=== PATIENT | female | born 1970 | race Caucasian/White ===

== ENCOUNTER 2018-12-24 19:32 | Emergency (ER) | payer MEDICARE, MEDICAID ==
[~2018-12-24] VITALS: Ht 147.3 cm; Wt 72.7 kg
[2018-12-24 19:37] VITALS: BP 121/72; PULSE 100; TEMP 98.1
[2018-12-24] MEDS ORDERED: CYMBALTA 30MG30 MG PO (22:45)
[2018-12-24] MEDS ORDERED: NORCO 325 MG-51 TAB PO (23:44)
== END 2018-12-24 23:55 | disposition home or self-care (01) ==
LOC: COL.ER 19:32
DX: M79.7 Fibromyalgia (principal); M25.561 Pain in right knee; M25.562 Pain in left knee; W18.30XA Fall on same level, unspecified, initial encounter; Y92.410 Unspecified street and highway as the place of occurrence of the external cause
CPT/HCPCS: J1885

== ENCOUNTER → 2019-02-14 | Outpatient (CLI) | payer MEDICARE, MEDICAID ==
[~2019-02-14] MED LIST: CYMBALTA 30MG30 MG PO; NORCO 325 MG-51 TAB PO
== END ==
LOC: MHCPAIN 10:22
DX: G89.29 Other chronic pain (principal); M47.817 Spondylosis without myelopathy or radiculopathy, lumbosacral region; M54.16 Radiculopathy, lumbar region; M53.3 Sacrococcygeal disorders, not elsewhere classified; M96.1 Postlaminectomy syndrome, not elsewhere classified
CPT/HCPCS: G0463

== ENCOUNTER → 2019-02-17 | Outpatient (CLI) | payer MEDICARE, MEDICAID | LOC: MHCPAIN 13:41 | DX: M47.817 Spondylosis without myelopathy or radiculopathy, lumbosacral region (principal); M54.16 Radiculopathy, lumbar region; M53.3 Sacrococcygeal disorders, not elsewhere classified | CPT/HCPCS: G0260; J1040; Q9967 ==

== ENCOUNTER → 2019-06-27 | Outpatient (CLI) | payer MEDICARE, MEDICAID | LOC: MHCPAIN 09:03 | DX: G89.29 Other chronic pain (principal); M47.817 Spondylosis without myelopathy or radiculopathy, lumbosacral region; M54.16 Radiculopathy, lumbar region; M53.3 Sacrococcygeal disorders, not elsewhere classified; M96.1 Postlaminectomy syndrome, not elsewhere classified | CPT/HCPCS: G0463 ==

== ENCOUNTER 2019-08-19 15:00 | Outpatient (RCR) | payer MEDICARE, MEDICAID | END 2019-10-07 10:50 | disposition home or self-care (01) | LOC: WSC 15:00 | DX: M53.3 Sacrococcygeal disorders, not elsewhere classified (principal); M96.1 Postlaminectomy syndrome, not elsewhere classified; M47.27 Other spondylosis with radiculopathy, lumbosacral region; M79.7 Fibromyalgia ==

== ENCOUNTER → 2019-09-26 | Outpatient (CLI) | payer MEDICARE, MEDICAID | LOC: MHCPAIN 09:26 | DX: M47.817 Spondylosis without myelopathy or radiculopathy, lumbosacral region (principal); M53.3 Sacrococcygeal disorders, not elsewhere classified | CPT/HCPCS: G0463 ==

== ENCOUNTER 2022-04-22 07:59 | Day surgery (SDC) | payer MEDICARE, MEDICAID ==
[~2022-04-22] VITALS: Ht 147.3 cm; Wt 62.6 kg
[2022-04-22 09:00] VITALS: BP 116/75; PULSE 81; TEMP 98
[2022-04-22] MEDS ORDERED: CATAPRES 0.1MG0.1 MG PO (09:22)
[2022-04-22] MEDS ORDERED: CYMBALTA 60MG60 MG PO (09:23)
[2022-04-22] MEDS ORDERED: ELAVIL100 MG PO (09:24)
[2022-04-22] MEDS ORDERED: MOBIC15 MG PO (09:24)
[2022-04-22] MEDS ORDERED: SYNTHROID0.05 MG/TA PO (09:25)
[2022-04-22] MEDS ORDERED: ZANAFLEX 4MG TAB4 MG PO (09:25)
[2022-04-22] MEDS ORDERED: TOPAMAX 25MG25 M1 PO (09:26)
[2022-04-22] MEDS ORDERED: PROTONIX20 MG PO (09:26)
[2022-04-22] MEDS ORDERED: SINGULAIR 110 MG/TAB PO (09:27)
[2022-04-22] MEDS ORDERED: ZOCOR 10MG10 MG PO (09:27)
[2022-04-22] MEDS ORDERED: 00186-0370-20 IH (09:28)
[2022-04-22] MEDS ORDERED: VALIUM 10MG10 MG/TAB PO (09:29)
[2022-04-22] MEDS ORDERED: PROAIR HFA0.09 MG/AC IH (09:30)
[2022-04-22] MEDS ORDERED: TRIAMCINOLONE A15 GM TP (09:30)
[2022-04-22] MEDS ORDERED: ALBUTEROL0.83 MG/ML IH (09:31)
[2022-04-22] MEDS ORDERED: VITAMIN D31000 IU PO (09:31)
[2022-04-22] MEDS ORDERED: FOLIC ACID0.4 MG PO (09:32)
[2022-04-22] MEDS ORDERED: B-12 500 MCG PO (09:32)
[2022-04-22] MEDS ORDERED: NATURE'S BLE1000 MCG PO (09:33)
[2022-04-22] MEDS ORDERED: OMEGA-3 FISH1000 MG PO (09:33)
[2022-04-22] MEDS ORDERED: MULTI VITAMINS1 TAB PO (09:33)
[2022-04-22 09:55] VITALS: BP 113/86; PULSE 82; TEMP 98.3
[2022-04-22 10:10] VITALS: BP 111/95; PULSE 77
[2022-04-22 10:25] VITALS: BP 133/62; PULSE 73
== END 2022-04-22 10:40 | disposition home or self-care (01) ==
LOC: SDCO 07:59
DX: K21.9 Gastro-esophageal reflux disease without esophagitis (principal); K29.30 Chronic superficial gastritis without bleeding; Z98.890 Other specified postprocedural states; Z79.899 Other long term (current) drug therapy
CPT/HCPCS: J2704; J7120

== ENCOUNTER 2023-11-03 11:51 | Emergency (ER) | payer MEDICARE, MEDICAID ==
[~2023-11-03] VITALS: Ht 147.3 cm; Wt 65.0 kg
[~2023-11-03 11:51] MED LIST changes: +00186-0370-20 IH; +ALBUTEROL0.83 MG/ML IH; +B-12 500 MCG PO; +CATAPRES 0.1MG0.1 MG PO; +CYMBALTA 60MG60 MG PO; +ELAVIL100 MG PO; +FOLIC ACID0.4 MG PO; +MOBIC15 MG PO; +MULTI VITAMINS1 TAB PO; +NATURE'S BLE1000 MCG PO; +OMEGA-3 FISH1000 MG PO; +PROAIR HFA0.09 MG/AC IH; +PROTONIX20 MG PO; +SINGULAIR 110 MG/TAB PO; +SYNTHROID0.05 MG/TA PO; +TOPAMAX 25MG25 M1 PO; +TRIAMCINOLONE A15 GM TP; +VALIUM 10MG10 MG/TAB PO; +VITAMIN D31000 IU PO; +ZANAFLEX 4MG TAB4 MG PO; +ZOCOR 10MG10 MG PO
[2023-11-03 12:05] VITALS: TEMP 97.4
[2023-11-03 13:15] VITALS: BP 132/78; PULSE 85
== END 2023-11-03 13:17 | disposition home or self-care (01) ==
LOC: COL.ER 11:51
DX: S70.01XA Contusion of right hip, initial encounter (principal); W19.XXXA Unspecified fall, initial encounter